=== PATIENT | female | born 1980 | race Caucasian/White ===

== ENCOUNTER 2017-03-01 01:02 | Emergency (ER) | payer SELFPAY ==
[~2017-03-01 01:02] MED LIST: ALPRAZOLAM0.5 M3 PO; ALPRAZOLAM0.5 MG; ALPRAZOLAM0.5 MG PO; AMBIEN10 MG; AMBIEN10 MG PO; BENTYL20 MG PO; CELEXA20 M1 PO; CELEXA20 MG; CIPRO250 MG PO; CIPRO500 M1 PO; COLACE100 MG PO; COMPAZINE10 M PO; DARVOCET-N 1001 EA PO; DARVOCET-N 1001 TAB PO; FLEXERIL10 MG PO; HYDROCODON-ACE1 EAC7 PO; LEVAQUIN250 MG PO; LODINE300 M1 PO; MACROBID100 MG/CAP PO; MIRALAX255 GM PO; MOTRIN600 MG PO; NO HOME MEDICATION XX; NO HOME MEDS; NORCO 5-325 TA1 EACH PO; NORCO 5/325 TAB1 TAB PO; NORCO 7.5/325 T1 TAB PO; NORFLEX100 MG; PERCOCET 5/3251 TAB PO; ULTRACET TABLE1 EACH PO; VICODIN 5/500 T1 TAB PO; ZITHROMAX250MG Z-PAK PO; ZOFRAN ODT4 MG PO; ZOFRAN ODT4 MG/UDTAB PO
[2017-03-01] MEDS ORDERED: XANAX0.5 M1 PO (01:42)
[2017-03-01] MEDS ORDERED: FLAGYL500 M1 PO (01:43)
[2017-03-01 01:55] LABS: URINE BILIRUBIN NEGATIVE (NEG); URINE BLOOD NEGATIVE (NEG); URINE GLUCOSE (UA) NEGATIVE (NEG); URINE KETONE NEGATIVE (NEG); URINE LEUKOCYTE ESTERASE POSITIVE (NEG); URINE NITRITE NEGATIVE (NEG); URINE PH 6.5 (5.0-8.0); URINE PROTEIN NEGATIVE (NEG)
[2017-03-01 01:56] LABS: URINE COLOR PALE YELLOW
[2017-03-01 01:57] LABS: URINE APPEARANCE CLEAR
[2017-03-01 02:04] LABS: URINE EPITHELIAL CELLS 0 /[HPF] (0-10); URINE RBC 0-1 /[HPF] (0-5); URINE WBC 0-1 /[HPF] (0-5)
[2017-03-01 02:55] LABS: BASO % 0.4 % (0-2); EOS % 1.1 % (0-7); EOSINOPHIL ABSOLUTE COUNT 0.1 tho/cmm (0.0-0.7); HCT-HEMATOCRIT 39.7 % (34.0-49.0); HGB-HEMOGLOBIN 13.5 gm/dl (12.0-15.5); LYMPH ABSOLUTE COUNT 2.4 tho/cmm (0.8-4.5); MCH (MEAN CORPUSCULAR HGB) 32.9 pg (28.0-32.0); MCV (MEAN CELL VOLUME) 96.8 fl (82.0-96.0); MEAN PLATELET VOLUME 9.4 cmc (9.4-12.4); MONO % 4.8 % (0-12); MONOCYTE ABSOLUTE COUNT 0.3 tho/cmm (0.0-1.2); NEUTROPHIL ABSOLUTE COUNT 4.2 tho/cmm (1.6-8.0); NEUTROPHIL-AUTOMATED 4.2 tho/cmm (1.6-8.0); NEUTROPHILS % 59.7 % (40-80); PLATELET COUNT 197 tho/cmm (150-450); RED CELL DISTRIBUTION WIDTH 13.4 % (12.4-16.4); WHITE BLOOD COUNT 7.1 tho/cmm (4.0-10.0)
[2017-03-01 03:03] LABS: ANION GAP 12 mmol/L (0-20); BLOOD UREA NITROGEN 10 mg/dl (6-24); CALCIUM 9.2 mg/dl (8.5-10.5); CARBON DIOXIDE-VENOUS 25 mmol/L (22-32); CHLORIDE 109 mmol/l (96-110); CREATININE 0.84 mg/dl (0.50-1.10); GLUCOSE 98 mg/dL (70-110); POTASSIUM 3.5 mmol/L (3.7-5.1); SODIUM 142 mmol/L (135-145); eGFR VALUE FOR BLACK >90 mL/Min
== END 2017-03-01 04:21 ==
LOC: EDMED 01:02
PROVIDERS: Emergency Medicine; Nurse Practitioner Family
DX: R10.84 Generalized abdominal pain (principal); G89.29 Other chronic pain; Z90.89 Acquired absence of other organs; Z90.710 Acquired absence of both cervix and uterus; Z90.49 Acquired absence of other specified parts of digestive tract; F17.200 Nicotine dependence, unspecified, uncomplicated
CPT/HCPCS: J1885